=== PATIENT | male | born 1995 ===

== ENCOUNTER 2020-07-17 05:13 | Observation (INO) | payer BC, OTHER ==
[2020-07-17] MEDS ORDERED: HYDROmorphone 2 MG/ML SDV IVPUSH ONE ×2 (06:26→08:00)
[2020-07-17] MEDS ORDERED: Sodium Chloride 0.9% 1,000 ML IV SCH ×2 (07:00→12:00)
[2020-07-17] MEDS ORDERED: Iopamidol 755 Mg/ML 100 ML Bottle IV ONE (07:39)
[2020-07-17] MEDS ORDERED: Sodium Chloride 0.9% 1,000 ML IV ONE ×2 (08:01→09:15)
[2020-07-17] MEDS ORDERED: Diphtheria,Pertussis(Acell),Tetanus Vaccine 0.5 ML Syringe IM ONE (08:18)
[2020-07-17] MEDS ORDERED: Ketorolac 30 MG/ML SDV IVPUSH ONE (10:25)
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
[2020-07-17] MEDS ORDERED: Acetaminophen/HYDROcodone 325-5 MG Tab PO PRN (11:56)
[2020-07-17] MEDS ORDERED: Morphine 2 MG/ML SYRINGE IVPUSH PRN (11:56)
[2020-07-17] MEDS ORDERED: Ketorolac 30 MG/ML SDV IVPUSH PRN (11:56)
[2020-07-17] MEDS ORDERED: Ondansetron 4 MG/2 ML SDV IV PRN (11:56)
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
[2020-07-17] MEDS: Acetaminophen/HYDROcodone 325-5 MG Tab PO PRN (20:37)
[2020-07-18] MEDS: Acetaminophen/HYDROcodone 325-5 MG Tab PO PRN ×2 (01:21→08:26)
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
== END 2020-07-18 10:10 | disposition home or self-care (01) ==
LOC: FB.ED 05:13 → FB.MS 11:59
PROVIDERS: ADMIT Surgery; ATTEND Surgery
DX: S27.0XXA Traumatic pneumothorax, initial encounter (principal); S22.070A Wedge compression fracture of T9-T10 vertebra, initial encounter for closed fracture; S82.141A Displaced bicondylar fracture of right tibia, initial encounter for closed fracture; V49.9XXA Car occupant (driver) (passenger) injured in unspecified traffic accident, initial encounter; Z20.828 Contact with and (suspected) exposure to other viral communicable diseases
CPT/HCPCS: 36415; 70450; 71045; 71046; 71260; 72125; 72131; 73562; 74177; 80053; 80307; 81001; 83690; 85025; 85027; 87635; 90471; 90715; 96361; 96374; 96375; 96376; 99285; A9270; J1170; J1885; J7030; Q9967; U0002